=== PATIENT | male | born 1990 | race Caucasian/White ===

== ENCOUNTER 2019-05-11 15:03 | Outpatient (REF) | payer MEDICAID, SELFPAY ==
[2019-05-13 10:36] LABS: HIV-1/2 Ag & Ab Screen Negative (NEGAT); Hepatitis C Ab w Rflx HCV PCR Negative (NEGAT)
[2019-05-13 11:38] LABS: HSV Type 1 Ab, IgG Positive; HSV Type 2 Ab, IgG Negative
[2019-05-13 12:16] LABS: Syphilis Serology (RPR) Negative (Negative)
[2019-05-13 13:32] LABS: Chlamydia Result Negative; GC Result Negative; Specimen Description URETHRA
== END 2019-05-11 15:23 ==
LOC: NCHCN 15:03
PROVIDERS: PCP Physician Assistant; Visit Provider Internal Medicine
DX: F41.8 Other specified anxiety disorders (principal); L25.9 Unspecified contact dermatitis, unspecified cause; Z11.3 Encounter for screening for infections with a predominantly sexual mode of transmission; Z11.4 Encounter for screening for human immunodeficiency virus [HIV]; Z11.59 Encounter for screening for other viral diseases
CPT/HCPCS: 86803; 87389; 87491; 87591; 86592; 86695; 86696

== ENCOUNTER 2020-12-06 16:09 | Outpatient (REF) | payer MEDICAID, SELFPAY ==
[2020-12-07 10:39] LABS: COVID-19 RT-PCR UVMMC Result Negative (Negative)
== END 2020-12-06 16:10 | disposition home or self-care (01) ==
LOC: NCHCN 16:09
PROVIDERS: PCP Physician Assistant; Visit Provider Physician Assistant
DX: Z20.822 Contact with and (suspected) exposure to COVID-19 (principal)
CPT/HCPCS: U0003

== ENCOUNTER 2021-03-11 15:45 | Emergency (ER) | payer MEDICAID, SELFPAY ==
[2021-03-11 15:50] VITALS: BP 127/77; PULSE 65; RESP 16; TEMP 36.7; O2SAT 99
--- NOTE | 2021-03-11 16:01 | ED.GENADUL_ITS ---
Discharge Plan Disposition Patient Disposition: HOME Condition: Improving Discharge Details Clinical Impression: Allergic contact dermatitis due to plant Primary Care Provider: Scot Evans ED Provider: Usman Ahuja Home Meds and New Rx's Prescriptions: New prednisone 50 mg tablet 50 mg PO DAILY 12 Days Qty: 12 RF: 0 prednisone 10 mg tablets,dose pack See Rx Instructions .ROUTE .COMPLEX Qty: 21 RF: 0 famotidine 20 mg tablet 20 mg PO DAILY 14 Days Qty: 14 RF: 0 Continued hydroxyzine HCl 25 MG tablet 25 mg PO Q8H PRN PRNQty: 20 RF: 0 Aveeno Anti-Itch 28 GM cream 28 gm Topical QID PRN PRNQty: 1 RF: 0 Discharge Instructions Instructions: Dermatitis (ED) Additional Instructions: Prednisone 50 mg daily and then begin prednisone taper with Dosepak. Continue hydroxyzine or Benadryl as needed. Take famotidine daily as prescribed. May use a tepid bath, topical lotions to help calm the rash. Return to the ER for any acute concerns. 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 Now with a nearly diffuse pruritic rash that is slightly eruptive. Most consistent with a plant dermatitis. It has been resistant to topical treatments. We will place him on a long burst of prednisone with increased antihistamines. He understands anticipated course of resolution as well as to observe for poison oak and sriram while fishing. Stable and appropriate for outpatient management. HPI General Mode of arrival: ambulatory . Date/Time Provider Initiated Documentation: 03/11/21 15:54 . Limitations to Documentation: no limitations . Information obtained by: patient . History of Present Illness 30 year old M presents to the emergency department with the chief complaint of Itching rash, described as moderate, Quality is described as dull and constant, and is localized to the face, chest, upper extremity and lower extremity. Patient reports no radiation. Patient started experiencing this day(s) and it has been constant. No relieving factors improve symptom(s), No exacerbating factors reported . Patient did receive the following treatments prior to arrival, other (Topical treatment) Related Data Home Medications Medication Instructions Recorded Confirmed Aveeno Anti-Itch 28 gm TOPICAL QID PRN PRN #1 tub 06/20/13 03/11/21 hydroxyzine HCl 25 mg PO Q8H PRN PRN #20 tablet 06/20/13 03/11/21 famotidine 20 mg PO DAILY 14 Days #14 tab 03/11/21 prednisone 50 mg PO DAILY 12 Days #12 tab 03/11/21 prednisone See Rx Instructions .ROUTE 03/11/21 .COMPLEX #21 dose pk Previous Rx's Medication Instructions Recorded Aveeno Anti-Itch 28 gm TOPICAL QID PRN PRN #1 tub 06/20/13 hydroxyzine HCl 25 mg PO Q8H PRN PRN #20 tablet 06/20/13 famotidine 20 mg PO DAILY 14 Days #14 tab 03/11/21 prednisone 50 mg PO DAILY 12 Days #12 tab 03/11/21 prednisone See Rx Instructions .ROUTE 03/11/21 .COMPLEX #21 dose pk Allergies Allergy/AdvReac Type Severity Reaction Status Date / Time Penicillins Allergy Anaphylaxsi Unverified 03/11/21 15:54 s Sulfa (Sulfonamide Allergy Anaphylaxsi Unverified 03/11/21 15:54 Antibiotics) s General Stated Complaint: RashLesion MARIE: 4 Review of Systems Narrative: No difficulty swallowing, no change to voice, no difficulty breathing. 4 systems reviewed and otherwise negative [facility] Social History Smoking/Tobacco Use Status: Current every day Tobacco Type: cigarettes Smoking risk assessment performed?: Yes Alcohol Intake: never Drug use: Occasionally Substance use type: does not use Exam Narrative Exam Narrative: GEN: awake, alert, oriented 3. Pleasant, well groomed, interactive. HEAD: Normocephalic, atraumatic ENT: Mucous membranes moist, oropharynx unremarkable, External ear exam unremarkable EYES: PERRL, EOMI NECK: Full ROM, no MARINE, no menigismus CHEST/RESP: Nontender, clear to auscultation bilateral, no wheeze/rhonchi/rales CARDIOVASCULAR: RRR, no murmur, rub jewels. 2+ Rad pulse bilateral ABDOMEN: Soft, nontender, no mass. +Bowel sounds EXT: Full ROM, there is a raised, erythematous, excoriated, slightly honey crusted rash present on arms, right periorbital, right upper lip, chest, lower extremity Neuro: Grossly normal neurologic exam, conversant, interactive. Psych: Speech fluent, thoughts congruent, affect normal Course Vital Signs Vital signs: Vital Signs Temperature 36.7 C 03/11/21 15:50 Pulse 65 03/11/21 15:50 Respiratory Rate 16 03/11/21 15:50 Blood Pressure 127/77 03/11/21 15:50 Pulse Oximetry 99 03/11/21 15:50 Temperature 36.7 C 03/11/21 15:50 Temperature Source Skin 03/11/21 15:50 Pulse 65 03/11/21 15:50 Respiratory Rate 16 03/11/21 15:50 Respiratory Effort Non-Labored 03/11/21 15:50 Blood Pressure 127/77 03/11/21 15:50 Blood Pressure Position Sitting 03/11/21 15:50 Pulse Oximetry 99 03/11/21 15:50 Oxygen Delivery Method Room Air 03/11/21 15:50 Oxygen Flow Rate 0 03/11/21 15:50 Pain Level 0 03/11/21 15:50
== END 2021-03-11 16:20 | disposition home or self-care (01) ==
LOC: ER 16:19
PROVIDERS: Emergency Provider Emergency Medicine; PCP Physician Assistant
DX: L23.7 Allergic contact dermatitis due to plants, except food (principal)
CPT/HCPCS: 99283